=== PATIENT | male | born 1945 | race Caucasian/White ===

== ENCOUNTER 2018-08-24 07:57 | Day surgery (SDC) | payer OTHER, SELFPAY ==
[2018-08-24] VITALS (11 sets, daily range): BP systolic 89–172; BP diastolic 44–85; PULSE 62–72; RESP 11–16; TEMP 35.8–36.3; O2SAT 90–99; BMI 29.7
--- NOTE | 2018-08-24 08:44 | PM.PREOP ---
Pre-operative Note Interval Note History & Physical reviewed/Exam performed by Physician: Yes Changes to H&P: No
--- NOTE | 2018-08-24 09:38 | SUR.PREOP ---
Block start time 923. Monitoring initiated and maintained throughout procedure. Oxygen and medications given per anesthesiologist instructions. Patient remained stable throughout procedure, no adverse reactions noted. Block end time [928 ].
[2018-08-24] MEDS: CEFAZOLIN 2 GM/100 ML FROZ.PIGGY IV (09:41)
--- NOTE | 2018-08-24 10:24 | P.PCN_ITS ---
Procedures Date/Time Date of procedure: 08/24/18 Time of procedure: 09:15 General Procedure description: Ultrasound guided popliteal sciatic nerve block for post op pain control after right achilles tendon repair by Dr. Meléndez. Risk and be nefits of procedure discussed with patient. ASA monitoring applied to patient. Oxygen given via nasal cannula. 2 mg Versed and 50 mcg fentanyl given for procedural sedation. Skin site was prepped with chlorhexidine and allowed to fully dry. Sterile gloves, mask, hat and probe cover were used to maintain sterility. 2% lidocaine and 30ga needle was used to make a small skin wheal at needle insertion site. Under ultrasound guidance, a 21ga 100mm Pajunk needle was directed near the division of the sciatic nerve into tibial and peroneal nerve in the popliteal fossa (lateral approach). Patient reported no parasthesias. After negative aspiration, 20 mL 0.5% ropivicaine and 10mg dexamethasone were i njected around sciatic nerve. Patient tolerated procedure well.
[2018-08-24] MEDS: LACTATED RINGERS 1,000 ML 42 ML IV (12:19)
--- NOTE | 2018-08-24 12:38 | P.OP_ITS ---
Operative Date/Time/Diagnoses Date of procedure: 08/24/18 Time of procedure: 09:30 Pre-op diagnosis: 1. Rupture right Achilles tendon-chronic 2. Calcific tendinitis Achilles tendon right Post-op diagnosis: same Procedure & Clinicians Procedure: 1. Right Achilles tendon reconstruction, secondary CPT code 91120 2. FHL transfer CPT code 61088 3. V-Y lengthening Achilles tendon right Same procedure as scheduled: Yes Indications: The patient is a 73-year-old male who sustained the Achilles rupture on the right side approximately 6 weeks ago that was untreated. 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 Patient has been indicated for surgical reconstruction due to their a desired activity level. patient is a very active and walks over 10,000 steps a day. Patient has been counseled extensively regarding the complex nature of this problem and how much more complicated is an acute Achilles rupture. He understands that significantly more surgeries involved radial P prior to repair of the Achilles doing to longstanding nature of the tear. this includes the need to lengthen the calf muscle and transfer the FHL tendon to augment the repair. we discussed the rationale for risks of, and prolonged recovery associated with the surgery. The patient expressed understanding of all the issues including the risks of infection, nerve damage, wound dehiscence, re-rupture of the tendon, incomplete relief of pain, inability to return to the patient's desired level of function, generalized dissatisfaction with the surgical procedure outcome, deep vein thrombosis, pulmonary embolus, cardiac, complications and . The patient understands the healing of soft tissues will take 3 months but full recovery of hard 6-9 months. Patient also understands that is critical to strictly elevate the operative leg for the 1st 3 weeks after surgery to control swelling and pain. The patient was counseled that no weight-bearing will be allowed in the surgical leg until instructed to do safely initiate weight-bearing. Patient expressed full understanding of all these issues and would like to proceed with surgery. Surgeon: Lisbet Meléndez Click Yes if Unassisted: Yes Anesthesia Type: General and Peripheral nerve block Operative Notes Findings: There is a chronic distal mid substance rupture of the right Achilles that was encountered approximately 2 cm above the insertion. After debridement a 4 cm gap was present. due to the poor quality of the tissue noted intraoperatively and on preoperative MRI a FHL transfer was performed. additionally to bridge the gap allowing repair of the tendon a V-Y lengthening was performed. Closure Type: primary Specimen(s): none sent Prosthetic devices, grafts, tissues, transplants, or devices: Arthrex 7 x 23 mm bio tenodesis screw for FHL tendon transfer Applied: other (Splint) Estimated Blood Loss (mL): 5 Blood products transfused: none Tourniquet time (min): 87 Procedure in detail: The patient was seen in the preoperative area informed consent was confirmed and the patient's side and site of surgery was marked. patient was then brought to the operating room and a regional block was placed by the anesthesia team for postoperative pain control. Patient was then placed under general anesthesia in the supine position. tourniquet was placed on the upper aspect of the right leg and was well-padded. Patient was then moved into the prone position on the operative table. bilateral lower extremities were prepped out in the standard sterile fashion. Formal time-out procedure was performed confirming the patient's side and site of surgery administration of appropriate preoperative antibiotics. All were in agreement. After exsanguination with an Esmarch the tourniquet was inflated to 250 mm of mercury and stayed there for 87 minutes. At that time a longitudinal incision was made over the Achilles tendon had curving medially to stay just off the Achilles tendon distally. no dissection was carried out superficial to the paratenon. The paratenon was then incised and the tendon was explored. There is noted to be a chronic tear with large amount of scar tissue and the small amount of calcific of scar tissue at the rupture site. rupture site was approximately 2 cm from the calcaneal insertion. The tendon was mobilized in the scar tissue was excised there was noted to be approximately 4 cm gap between the tendon ends. Based on the poor quality of the tendon and size of the gap and patient's age it was decided that would be necessary to perform the FHL t ransfer. Additionally this gap remained after longitudinal traction on the proximal tendon for muscle relaxation therefore a V-Y gastrocsoleus lengthening was also determined necessary to bridge the gap. The incision was extended proximally in the calf with care to protect the sural nerve to the myotendinous junction. An inverted V shaped incision was drawn out on the myotendinous junction with approximately 6 cm limbs for 1-1/2 times the length of the gap. FHL transfer: Posterior fascia was incised deep in the calf and the FHL muscle belly and tendon were isolated the FHL was traced deep medially and retracted. isolation of the tendon was tested with mobilization of the great toe. Then the tendon was cut deep into the tunnel and brought out of the wound. This was sized to be a 7 and the fiber loop was placed in the tendon end. Next is the Beath pin was placed just anterior to the Achilles surgeon in the calcaneus and was drilled through the calcaneus in line with the Achilles insertion. Pin position was confirmed on fluoroscopy. This was then overdrilled with the 4mm Reamer then the 7 mm Reamer. Tendon was passed out the calcaneus with the Beath pin out the plantar foot. next the ankle was held in approximately 20? of plantar flexion to match the resting tension on the contralateral side and the FHL was brought into the tunnel and secured with the 7 x 23 mm Arthrex bio tenodesis screw. this achieved excellent fixation and held the ankle in the appropriate resting tension equal to the contralateral side. Attention was then returned to the Achilles tendon repair. The V-Y lengthening was mobilized to allow the tendon ends to be approximated maintaining the pre establish the resting tension with the FHL transfer. The tendon ends were then repaired in a standard fashion using 2. FiberWire Krackow sutures for a 2 strand repair. this was oversewn with 0 Vicryl sutures. next the V-Y tendon lengthening was repaired with over-Vicryl sutures. once this was completed the tourniquet was let down and hemostasis was obtained and irrigation was performed. there was good tension on the Achilles and a Chamberlain test restored of plantar flexion. at this time the paratenon was repaired with 4 0 Maxon suture. skin was then closed with 4 0 Maxon, 4 0 Monocryl and 3 O nylon suture. bulky dressing and splint were applied in plantar flexion. patient was awoken from anesthesia and taken to the recovery room. there were no immediate complications from this procedure. All counts were correct. Complications: none Condition: stable Disposition: PACU Plan for aftercare: Patient will be strict elevation and strict nonweightbearing. He will be on aspirin 325 mg twice daily for DVT prophylaxis and encouraged to wiggle his toes and mobilized the other extremity to help with blood flow. Patient will follow up in 2 weeks time for suture removal. Patient will then be placed into a boot with heel lifts or cast based on wound healing. once in a contreras the patient will be instructed to do gentle active range of motion exercises.
--- NOTE | 2018-08-24 13:01 | SUR.PHASEI ---
Report given to Taisha Hendrix RN .
--- NOTE | 2018-08-24 13:04 | SUR.PHASEI ---
Care assumed, sleeping, arouses easily to voice, denies pain. Skin warm and dry/pink.
--- NOTE | 2018-08-24 13:23 | SUR.PHASEI ---
1317 To OPD, family to bedside, Dr. Whitt check on and spoke to the patient.
--- NOTE | 2018-08-24 14:01 | SUR.PHASEII ---
1325 VSS, within 20 points of his normal, declines PO intake, desires to rest prior to discharge 1330 would like to take him home, states that all he wants to do it sleep. He is agreeable to going home to sleep. IV dc'd, clothes given.
--- NOTE | 2018-08-24 14:04 | SUR.PHASEII ---
0530 late entry - additional documentation: I asked the patient if he had crutches at home; states that he does [id number] Volunteer states that patient told her that he doesn't have crutches when she took him to the car. RN discussed weight bearing status with the patient and spouse prior to transfer, they are both aware that he cannot bear weight.
--- NOTE | 2018-08-24 14:08 | SUR.PHASEII ---
Called pt/ to be sure that they knew that he should not attempt to use the schooter while the block is in effect. She stated that he has cruthes in the car and will use those.
== END 2018-08-24 13:55 | disposition home or self-care (01) ==
PROVIDERS: PCP Family Medicine; Visit Provider Orthopaedic Surgery Foot and Ankle Surgery
PROC: (CPT 27650; principal; 2018-08-24 09:30)
DX: S86.011A Strain of right Achilles tendon, initial encounter (principal); M76.61 Achilles tendinitis, right leg; M66.361 Spontaneous rupture of flexor tendons, right lower leg; G89.18 Other acute postprocedural pain; E78.00 Pure hypercholesterolemia, unspecified
CPT/HCPCS: 27654; 27691; 64445; 64450; J0690; J1100; J2250; J2405; J2704; J3010